=== PATIENT | male | born 1980 | race Caucasian/White ===

== ENCOUNTER 2020-11-14 18:06 | Emergency (ER) | payer OTHER ==
[2020-11-14 18:17] VITALS: BMI 30.1
[2020-11-14] MEDS ORDERED: SODIUM CHLORIDE 0.9% 500 ML INFUS.BAG IV ONE (21:14)
[2020-11-14] MEDS ORDERED: KETOROLAC TROMETHAMINE 30 MG/1 ML VIAL IVPUSH ONE (21:15)
[2020-11-14] MEDS ORDERED: KETOROLAC TROMETHAMINE 30 MG/1 ML VIAL ONE (21:24)
[2020-11-14 21:53] LABS: BASO % 0.8 % (0-2.0); EOS % 2.8 % (0-4.5); HEMATOCRIT 44.8 % (35.4-49); HEMOGLOBIN 15.8 GM/dL (11.7-16.9); LYMPH % 26.9 % (8-40); MCH 29.4 pg (25.7-33.7); MCHC 35.2 g/dl (32.0-35.9); MEAN CELL VOLUME 83.6 fl (80-96); MEAN PLT VOLUME 7.2 fl (7.5-11.1); MONO % 9.1 % (3.8-10.2); NEUT % 60.4 % (42.8-82.8); PLATELET COUNT 206 10^3/uL (134-434); RBC 5.36 M/mm3 (4.00-5.60); RDW 12.5 % (11.9-15.9); WHITE BLOOD COUNT 7.8 K/mm3 (4.0-10.0)
[2020-11-14 22:12] LABS: ALBUMIN 4.2 g/dl (3.4-5.0); BLOOD UREA NITROGEN 13.1 mg/dL (7-18)
[2020-11-14 22:15] LABS: CREATININE 0.9 mg/dL (0.55-1.3)
[2020-11-14 22:16] LABS: BILIRUBIN,TOTAL 0.4 mg/dL (0.2-1)
[2020-11-15] MEDS ORDERED: levoFLOXacin 750 MG TABLET PO ONE ×2 (00:30→23:47)
[2020-11-15 00:35] VITALS: BP 132/72; PULSE 81; TEMP 98.3
[2020-11-15 00:47] LABS: URINE APPEARANCE CLEAR; URINE BILIRUBIN NEGATIVE (NEGATIVE); URINE COLOR YELLOW; URINE GLUCOSE (UA) NEGATIVE (NEGATIVE); URINE KETONE NEGATIVE (NEGATIVE); URINE LEUK ESTERASE NEGATIVE (NEGATIVE); URINE NITRITE NEGATIVE (NEGATIVE); URINE PROTEIN NEGATIVE (NEGATIVE); URINE UROBILINOGEN 0.2 mg/dL (0.2-1.0)
[2020-11-15] MEDS ORDERED: levoFLOXacin 750 MG TABLET PO SCH (10:00)
== END 2020-11-15 00:49 | disposition home or self-care (01) ==
LOC: JER 18:06
PROC: 3E0333Z Introduction of Anti-inflammatory into Peripheral Vein, Percutaneous Approach (ICD-10-PCS; principal; 2020-11-14)
PROC: 3E03329 Introduction of Other Anti-infective into Peripheral Vein, Percutaneous Approach (ICD-10-PCS; 2020-11-14)
DX: R10.9 Unspecified abdominal pain (principal)
CPT/HCPCS: 36415; 74177-TC; 80053; 81003; 83690; 85025; 99285-25; Q9967

== ENCOUNTER 2022-08-17 09:47 | Emergency (ER) | payer OTHER ==
[2022-08-17 10:06] VITALS: BP 144/93; PULSE 69; RESP 16; TEMP 97.8; BMI 27.3
== END 2022-08-17 11:41 | disposition home or self-care (01) ==
LOC: JERFT 09:47
DX: M25.531 Pain in right wrist (principal); X50.0XXA Overexertion from strenuous movement or load, initial encounter; Y99.0 Civilian activity done for income or pay
CPT/HCPCS: 73110-TC-RT-FY; 99283-25